=== PATIENT | female | born 1975 | race Caucasian/White ===

== ENCOUNTER 2023-08-10 10:45 | Emergency (ER) | payer OTHER, SELFPAY ==
[2023-08-10 10:46] VITALS: BP 137/86; PULSE 92; RESP 18; TEMP 36.6; O2SAT 100
--- NOTE | 2023-08-10 11:17 | ED_ITS ---
HPI - Dental/Oral General Chief complaint: Dental/Oral Stated complaint: oral infection Time Seen by Provider: 08/10/23 10:54 History of Present Illness HPI Narrative: Patient is a 48-year-old female who presents ER with dental pain. Left lower jaw. She has no teeth in the area where she has pain. She was seen at an urgent care yesterday and started on ibuprofen as well as viscous lidocaine and clindamycin. Pain increases today. No difficulty breathing or swallowing. She has not seen a dentist. Related Data Allergies Allergy/AdvReac Type Severity Reaction Status Date / Time erythromycin base Allergy Rash Verified 08/10/23 10:52 [From Erythrocin] Penicillins Allergy Anaphylactic Verified 08/10/23 10:51 Shock Tetracyclines Allergy Rash Verified 08/10/23 10:51 Review of Systems Constitutional: Constitutional: Reports no additional constitutional complaints ENT: Denies dysphagia and Denies sore throat Comments: Dental pain Gastrointestinal: Gastrointestinal: Reports no additional gastrointestinal complaints PMF Past Medical History Medical History (Updated 08/10/23 @ 11:20 by Robert Hernandez MD) Healthy female adult Exam Narrative: GENERAL: uncomfortable-appearing, well-nourished, and in no acute distress. HEAD: Normocephalic, atraumatic. ENT: Mucous membranes moist. insert no facial swelling, and no discernible abscess intraorally. EXTREMITIES: Normal range of motion. No edema. SKIN: Warm, dry, no rash. NEURO: Alert and oriented x3. PSYCH: Normal mood and affect. Course Course Emergency Course: [place] for pain. Continue antibiotics. Discharge home. Needs follow-up with dentist. Vital Signs Vital signs: Vital Signs Temperature 97.8 F 08/10/23 10:46 Pulse Rate 92 08/10/23 10:46 Respiratory Rate 18 08/10/23 10:46 Blood Pressure 137/86 08/10/23 10:46 Pulse Oximetry 100 08/10/23 10:46 Oxygen Delivery Room Air 08/10/23 10:46 Temperature 97.8 F 08/10/23 10:46 Pulse Rate 92 08/10/23 10:46 Respiratory Rate 18 08/10/23 10:46 Blood Pressure 137/86 08/10/23 10:46 Pulse Oximetry 100 08/10/23 10:46 Oxygen Delivery Room Air 08/10/23 10:46 Discharge Plan Discharge Clinical Impression: Pain, dental Patient Disposition: Home, Self-Care Condition: Stable Instructions: Toothache (ED) Additional Instructions: Return the ER if he cannot breathe, he cannot swallow, or you have additional concerns. Follow-up with the dentist for further treatment and evaluation. Prescriptions: New hydrocodone-acetaminophen 5-325 mg tablet 1 tablet PO Q6H PRN (Reason: pain) Qty: 12 0RF Follow-up/Referrals: Dental Referral Line [Outside] - 3 Days PHYSICIAN,FINANCIAL SYSTEMS ANALYST [Primary Care Provider] - Stand Alone Forms: Work/School Release IP
[2023-08-10] MEDS: HYDROcodone/acetaminophen (*CRX) 5-325 MG TABLET 1 TAB PO (11:25)
== END 2023-08-10 11:49 | disposition home or self-care (01) ==
PROVIDERS: Emergency Provider Emergency Medicine; Referring Provider Emergency Medicine
DX: K08.89 Other specified disorders of teeth and supporting structures (principal)
CPT/HCPCS: 99283; A9270